=== PATIENT | male | born 1970 | race Caucasian/White ===

== ENCOUNTER 2017-01-15 12:55 | Emergency (ER) | payer OTHER ==
[2017-01-15 13:06] VITALS: BP 147/98
--- NOTE | 2017-01-15 13:55 | UC ---
Respiratory Complaint HPI - HPI Summary HPI Summary: 46 yo male with a 2 day hx of malaise/lassitude/weakness/cough/congestion/ myalgias no fever - History of Current Complaint Chief Complaint: UCGeneralIllness Stated Complaint: FLU SYMPTOMS Time Seen by Provider: 01/15/17 13:12 Hx Obtained From: Patient Onset/Duration: Gradual Onset, Lasting Days Timing: Constant Severity Initially: Mild Severity Currently: Mild Pain Intensity: 2 Pain Scale Used: 0-10 Numeric Character: Cough: Nonproductive Aggravating Factors: Nothing Alleviating Factors: Nothing Associated Signs And Symptoms: Positive: Nasal Congestion. Negative: Dyspnea, Fever, Chills, Pleuritic Chest Pain, Wheezing, Hemoptysis, Dizziness, Calf Pain , Calf Swelling, Edema, URI, Hoarseness, Sinus Discomfort Related History: Similar Episode/Dx as: - flu - Allergies/Home Medications Allergies/Adverse Reactions: Allergies Allergy/AdvReac Type Severity Reaction Status Date / Time No Known Allergies Allergy Verified 01/15/17 13:07 PMH/Surg Hx/FS Hx/Imm Hx Previously Healthy: Yes - Surgical History Surgical History: Yes Surgery Procedure, Year, and Place: gastric bypass 2011, right knee arthroscopy- meniscus - Social History Alcohol Use: Rare Substance Use Type: None Smoking Status (MU): Never Smoked Tobacco Review of Systems Constitutional: Fatigue Skin: Negative Eyes: Negative ENT: Sore Throat, Nasal Discharge Respiratory: Cough Cardiovascular: Negative Gastrointestinal: Negative Genitourinary: Negative Motor: Negative Neurovascular: Negative Musculoskeletal: Myalgia Neurological: Headache Psychological: Negative Is Patient Immunocompromised?: No All Other Systems Reviewed And Are Negative: Yes Physical Exam Triage Information Reviewed: Yes Appearance: Well-Appearing, No Pain Distress, Well-Nourished Vital Signs: Initial Vital Signs Temp 99.1 F 01/15/17 12:59 Pulse 79 01/15/17 12:59 Resp 18 01/15/17 12:59 BP 147/98 01/15/17 12:59 Pulse Ox 100 01/15/17 12:59 Vital Signs Reviewed: Yes Eyes: Positive: Conjunctiva Clear ENT: Positive: Hearing grossly normal, Nasal congestion, Nasal drainage, Trismus. Negative: TMs normal, Tonsillar swelling, Tonsillar exudate Neck: Positive: Supple, Nontender, No Lymphadenopathy Respiratory: Positive: Lungs clear, Normal breath sounds, No respiratory distress, No accessory muscle use Cardiovascular: Positive: RRR, No Murmur Musculoskeletal: Positive: ROM Intact, No Edema Neurological: Positive: Alert Psychological Exam: Normal Skin Exam: Normal UC Diagnostic Evaluation - Laboratory O2 Sat by Pulse Oximetry: 100 - normal/not hypoxic Diagnostic Studies Comment: RAPID FLU: (-) Respiratory Course/Dx - Differential Dx/Diagnosis Provider Diagnoses: viral syndrome Discharge - Discharge Plan Condition: Stable Disposition: HOME Patient Education Materials: Viral Syndrome (ED) Forms: *Work Release Referrals: Tin Demarco MD [Primary Care Provider] - Additional Instructions: rest fluids tylenol recheck here if symptoms worsen recheck with your MD next week if not better
== END 2017-01-15 14:00 | disposition home or self-care (01) ==
LOC: UCEAST 12:55
DX: R53.1 Weakness (principal); R05 Cough; R09.89 Other specified symptoms and signs involving the circulatory and respiratory systems; M79.1 Myalgia
CPT/HCPCS: 87502; 99211; G0463

== ENCOUNTER 2018-01-21 07:26 | Emergency (ER) | payer OTHER ==
[2018-01-21 08:01] VITALS: BP 142/93
--- NOTE | 2018-01-21 08:20 | UC ---
Psychiatric Complaint HPI - HPI Summary HPI Summary: 47 yo M c/o elevated BP and HR this morning. Patient has hx of anxiety and panic attacks for which he takes liquid Xanax (unable to take solid pill 2/2 hx of paulo-en-y surgery). Patient has had increased anxiety recently as he prepares for [facility] marathon in 3 days. He is competing w his , does not really want to, but feels obligated to run both for his and for the [employer] that he is running on behalf of. Awoke this morning w severe anxiety and noted increased HR and BP on wearable monitoring devices. He had SOB but no CP. Denies hx of DM or HTN. besides morbid obesity, is otherwise healthy and has completed 4 marathons in past. At this time, feels greatly improved compared to when symptoms first began. He took 1.5 doses of liquid Xanax and performed breathing exercises prior to arrival. Medications noted above (also takes sleep aid he cannot recall) - History Of Current Complaint Chief Complaint: UCPsych Stated Complaint: ANXIETY Time Seen by Provider: 01/21/18 07:58 - Allergies/Home Medications Allergies/Adverse Reactions: Allergies Allergy/AdvReac Type Severity Reaction Status Date / Time No Known Allergies Allergy Verified 01/15/17 13:07 PMH/Surg Hx/FS Hx/Imm Hx - Surgical History Surgical History: Yes Surgery Procedure, Year, and Place: gastric bypass 2010, right knee arthroscopy- meniscus - Social History Alcohol Use: Rare Substance Use Type: Prescribed Smoking Status (MU): Never Smoked Tobacco Review of Systems Respiratory: Shortness Of Breath Cardiovascular: Negative All Other Systems Reviewed And Are Negative: Yes Physical Exam Triage Information Reviewed: Yes Appearance: Well-Appearing, No Pain Distress, Obese Vital Signs: Initial Vital Signs Temp 98.7 F 01/21/18 07:37 Pulse 84 01/21/18 07:37 Resp 24 01/21/18 07:37 BP 190/102 01/21/18 07:37 Pulse Ox 97 01/21/18 07:37 Vital Signs Reviewed: Yes Eyes: Positive: Conjunctiva Clear Respiratory: Positive: Normal breath sounds, No respiratory distress, No accessory muscle use Cardiovascular Exam: Normal Cardiovascular: Positive: RRR Abdomen Description: Negative: Distended Neurological: Positive: Alert Psychological: Positive: Age Appropriate Behavior, Consolable Skin Exam: Normal Skin: Positive: Other - no diaphoresis Diagnostics - EKG Cardiac Rhythm: Sinus: Normal Ectopy: None ST Segment: Normal Psych Complaint Course/Dx - Differential Dx/Diagnosis Differential Diagnosis/HQI/PQRI: Other - generalized anxiety, panic attack, less likely, ACS Provider Diagnoses: panic attack Discharge - Sign-Out/Discharge Documenting (check all that apply): Patient Departure All imaging exams completed and their final reports reviewed: No Studies - Discharge Plan Condition: Stable Disposition: HOME Patient Education Materials: Panic Attack (ED) Forms: *Work Release Referrals: Tin Demarco MD [Primary Care Provider] - - Billing Disposition and Condition Condition: STABLE Disposition: Home
== END 2018-01-21 08:35 | disposition home or self-care (01) ==
LOC: UCEAST 07:26
DX: F41.0 Panic disorder [episodic paroxysmal anxiety] (principal)
CPT/HCPCS: 93005; 99211; G0463

== ENCOUNTER 2018-05-11 08:16 | Emergency (ER) | payer OTHER ==
[2018-05-11 08:42] VITALS: BP 160/95
--- NOTE | 2018-05-11 10:47 | UC ---
Respiratory Complaint HPI - HPI Summary HPI Summary: 2-3 weeks of cough and congestion. Has fits of coughing and cannot stop. No fever, nausea/vomiting. No headache or body aches. - History of Current Complaint Chief Complaint: UCRespiratory Stated Complaint: SORE THROAT COUGH DIARRHEA Time Seen by Provider: 05/11/18 09:10 Hx Obtained From: Patient Onset/Duration: Gradual Onset, Lasting Weeks, Still Present Timing: Constant Severity Initially: Moderate Severity Currently: Moderate Pain Intensity: 2 Pain Scale Used: 0-10 Numeric Character: Cough: Nonproductive Aggravating Factors: Nothing Alleviating Factors: Nothing Associated Signs And Symptoms: Positive: URI, Nasal Congestion. Negative: Dyspnea, Fever, Wheezing - Allergies/Home Medications Allergies/Adverse Reactions: Allergies Allergy/AdvReac Type Severity Reaction Status Date / Time No Known Allergies Allergy Verified 05/11/18 08:37 Home Medications: Home Medications Ferrous Fumarate/Ascorbic Acid [Mariel-Sequels 65-25 mg Caplet] 1 tab PO DAILY [History Confirmed 05/11/18] guaiFENesin ER TAB [Mucinex*] 600 mg PO BID PRN 05/11/18 [History Confirmed ] PMH/Surg Hx/FS Hx/Imm Hx Previously Healthy: Yes - Surgical History Surgical History: Yes Surgery Procedure, Year, and Place: gastric bypass 2010, right knee arthroscopy- meniscus - Family History Known Family History: Positive: Non-Contributory - Social History Alcohol Use: Rare Substance Use Type: None Smoking Status (MU): Never Smoked Tobacco Review of Systems All Other Systems Reviewed And Are Negative: Yes Constitutional: Positive: Negative ENT: Positive: Nasal Discharge Respiratory: Positive: Cough Cardiovascular: Positive: Negative Gastrointestinal: Positive: Negative Physical Exam Triage Information Reviewed: Yes Appearance: Well-Appearing, No Pain Distress, Well-Nourished Vital Signs: Initial Vital Signs Temp 99.1 F 05/11/18 08:29 Pulse 104 05/11/18 08:29 Resp 16 05/11/18 08:29 BP 160/95 05/11/18 08:29 Pulse Ox 96 05/11/18 08:29 Vital Signs Reviewed: Yes Eyes: Positive: Conjunctiva Clear ENT: Positive: Hearing grossly normal, Pharynx normal, TMs normal Neck: Positive: Supple, Nontender, No Lymphadenopathy Respiratory Exam: Normal Cardiovascular Exam: Normal Abdomen Description: Positive: Soft Musculoskeletal: Positive: No Edema Neurological: Positive: Alert Psychological: Positive: Age Appropriate Behavior Skin: Negative: Rashes UC Diagnostic Evaluation - Laboratory O2 Sat by Pulse Oximetry: 96 Respiratory Course/Dx - Differential Dx/Diagnosis Provider Diagnosis: Acute bronchitis Discharge - Sign-Out/Discharge Documenting (check all that apply): Patient Departure All imaging exams completed and their final reports reviewed: No Studies - Discharge Plan Condition: Stable Disposition: HOME Prescriptions: Azithromycin 500 mg PO DAILY #5 tab Patient Education Materials: Acute Bronchitis (ED) Forms: *Work Release Referrals: iTn Demarco MD [Primary Care Provider] - If Needed Additional Instructions: YOUR SYMPTOMS MAY BE VIRALLY MEDIATED BUT GIVEN THE LENGTH OF TIME YOU HAVE BEEN ILL WE WILL COVER YOU WITH ANTIBIOTICS. IF YOU START THE MEDICINE BE SURE TO TAKE IT FOR THE FULL COURSE. REST, HYDRATE, OTC MEDS NEEDED. SEEK FOLLOW- UP WITH YOUR PCP IF YOU ARE NOT IMPROVING OVER THE NEXT 1-2 WEEKS. - Billing Disposition and Condition Condition: STABLE Disposition: Home
== END 2018-05-11 09:28 | disposition home or self-care (01) ==
LOC: UCEAST 08:16
DX: J20.9 Acute bronchitis, unspecified (principal)
CPT/HCPCS: 99212; G0463

== ENCOUNTER 2019-03-08 05:27 | Emergency (ER) | payer OTHER ==
[2019-03-08] MEDS ORDERED: NS 0.9% 1000 ML** 1,000 ML IV ONE (05:49)
[2019-03-08] MEDS ORDERED: Ketorolac INJ* 30 MG/ML 1 ML VIAL IV PUSH ONE (06:01)
[2019-03-08 06:18] LABS: ABS Basophils 0.1 10^3/ul (0-0.2); ABS Eosinophils 0.1 10^3/ul (0-0.6); ABS Lymphocytes 1.4 10^3/ul (1.0-4.8); ABS Monocytes 0.7 10^3/ul (0-0.8); ABS Neutrophils 4.6 10^3/ul (1.5-7.7); Eosinophil % 1.5 %; Hematocrit 38 % (42-52); Hemoglobin 12.6 g/dL (14.0-18.0); Lymphocyte % 19.8 %; Mean Corpuscular HGB Conc 33 g/dL (31-36); Mean Corpuscular Hemoglobin 27 pg (27-31); Mean Corpuscular Volume 82 fL (80-94); Mean Platelet Volume 7.6 fL (7.4-10.4); Platelet Count 307 10^3/uL (150-450); Red Cell Distribution Width 17 % (10-15); White Blood Count 6.9 10^3/uL (3.5-10.8)
[2019-03-08 06:18] LABS: Urine Appearance Clear; Urine Bilirubin Negative (Negative); Urine Blood Negative (Negative); Urine Color Yellow; Urine Glucose Negative (Negative); Urine Ketones Negative (Negative); Urine Nitrite Negative (Negative); Urine Protein Negative (Negative); Urine Urobilinogen Negative (Negative)
[2019-03-08 07:05] LABS: Albumin/Globulin Ratio 1.3 (1-3); BUN/Creatinine Ratio 8.7 (8-20); C Reactive Protein 20.7 mg/L (<8.01); Calcium 8.7 mg/dL (8.6-10.3); EGFR African American 107.2 (>60); EGFR Non-African American 88.6 (>60); Globulin 3.2 g/dL (2-4); Total Bilirubin 0.4 mg/dL (0.2-1.0); Total Protein 7.2 g/dL (6.4-8.9)
--- NOTE | 2019-03-08 07:48 | ED ---
Back Pain - HPI Summary HPI Summary: Patient is a 48-year-old male who presents emergency department for intermittent right flank pain 4 weeks. Patient also notes blood in urine and believes he has passed small kidney stones as he saw a solid matter in the toilet. Patient denies fever, chills, chest pain, shortness of breath, abdominal pain. Past medical history of gastric bypass, gastric ulcer. Pain is worse with movement. Symptoms are moderate in severity. - History of Current Complaint Chief Complaint: EDFlankPain Stated Complaint: BLOOD IN URINE PER PT Time Seen by Provider: 03/08/19 05:45 Hx Obtained From: Patient Pain Intensity: 7 - Allergies/Home Medications Allergies/Adverse Reactions: Allergies Allergy/AdvReac Type Severity Reaction Status Date / Time No Known Allergies Allergy Verified 03/08/19 05:31 Home Medications: Home Medications ALPRAZolam [Alprazolam Odt] 2 mg PO Q6HR 03/08/19 [History Confirmed 03/08/19] Levomilnacipran HCl [Fetzima] 20 mg PO DAILY 03/08/19 [History Confirmed ] QUEtiapine TAB* [Seroquel 300 MG TAB*] 300 mg PO BEDTIME 03/08/19 [History Confirmed 03/08/19] Vortioxetine (NF) [Trintellix (NF)] 20 mg PO DAILY 03/08/19 [History Confirmed 03/08/19] PMH/Surg Hx/FS Hx/Imm Hx Previously Healthy: Yes Endocrine/Hematology History: Denies: Hx Diabetes, Hx Thyroid Disease Cardiovascular History: Denies: Hx Hypertension Respiratory History: Reports: Hx Sleep Apnea - HISTORY OF Denies: Hx Asthma, Hx Chronic Obstructive Pulmonary Disease (COPD) GI History: Denies: Hx Ulcer History: Reports: Hx Kidney Stones - HX OF -2014,2009- NO PROCEDURES Musculoskeletal History: Reports: Hx Arthritis - RHEUMATOID - RIGHT KNEE Sensory History: Reports: Hx Cataracts - BILATERAL Denies: Hx Contacts or Glasses, Hx Hearing Aid Opthamlomology History: Reports: Hx Cataracts - BILATERAL Denies: Hx Contacts or Glasses Psychiatric History: Reports: Hx Anxiety - HISTORY OF IN THE PAST, Hx Depression - HISTORY OF IN THE PAST - Surgical History Surgery Procedure, Year, and Place: gastric bypass 2010, right knee arthroscopy- meniscus Hx Anesthesia Reactions: No - Immunization History Immunizations Up to Date: Yes Infectious Disease History: No Infectious Disease History: Denies: Hx Hepatitis, Hx Human Immunodeficiency Virus (HIV), History Other Infectious Disease, Traveled Outside the [place] in Last 30 Days - Family History Known Family History: Positive: Non-Contributory - Social History Occupation: Employed Full-time Lives: With Family Alcohol Use: Rare Substance Use Type: Reports: None Smoking Status (MU): Never Smoked Tobacco Review of Systems Constitutional: Negative Negative: Fever ENT: Negative Cardiovascular: Negative Negative: Palpitations, Chest Pain Respiratory: Negative Negative: Shortness Of Breath, Cough Positive: Nausea. Negative: Abdominal Pain, Vomiting, Diarrhea Positive: flank pain, hematuria Positive: Other - Back pain, right Neurological: Negative Negative: Weakness, Paresthesia, Numbness All Other Systems Reviewed And Are Negative: Yes Physical Exam Triage Information Reviewed: Yes Vital Signs On Initial Exam: Initial Vitals Temp Pulse Resp BP Pulse Ox 97.7 F 104 16 153/126 99 03/08/19 05:29 03/08/19 05:29 03/08/19 05:29 03/08/19 05:29 03/08/19 05:29 Vital Signs Reviewed: Yes Appearance: Positive: Well-Appearing - Pt. sitting on bed in NAD> Skin: Positive: Warm, Dry Head/Face: Positive: Normal Head/Face Inspection Eyes: Positive: Normal, EOMI, TRISH Neck: Positive: Supple Respiratory/Lung Sounds: Positive: Clear to Auscultation, Breath Sounds Present Cardiovascular: Positive: Normal, RRR Abdomen Description: Positive: Other: - Obese. Abd. is soft and nontendner throughout. Right CVA tenderness. Musculoskeletal: Positive: Normal, Strength/ROM Intact Neurological: Positive: Normal, CN Intact II-III Psychiatric: Positive: Affect/Mood Appropriate Procedures - Sedation Patient Received Moderate/Deep Sedation with Procedure: No Diagnostics - Vital Signs Vital Signs Temp Pulse Resp BP Pulse Ox 03/08/19 05:29 97.7 F 104 16 153/126 99 - Laboratory Lab Results: Lab Results 03/08/19 03/08/19 03/08/19 Range/Units 06:05 06:09 06:09 WBC 6.9 (3.5-10.8) 10^3/uL RBC 4.70 (4.18-5.48) 10^6 /uL Hgb 12.6 L (14.0-18.0) g/dL Hct 38 L (42-52) % MCV 82 (80-94) fL MCH 27 (27-31) pg MCHC 33 (31-36) g/dL RDW 17 H (10-15) % Plt Count 307 (150-450) 10^3/uL MPV 7.6 (7.4-10.4) fL Neut % (Auto) 67.3 % Lymph % (Auto) 19.8 % [place] % (Auto) 10.6 % Eos % (Auto) 1.5 % Baso % (Auto) 0.8 % Absolute Neuts (auto) 4.6 (1.5-7.7) 10^3/ul Absolute Lymphs (auto) 1.4 (1.0-4.8) 10^3/ul Absolute Monos (auto) 0.7 (0-0.8) 10^3/ul Absolute Eos (auto) 0.1 (0-0.6) 10^3/ul Absolute Basos (auto) 0.1 (0-0.2) 10^3/ul Absolute Nucleated RBC 0.0 10^3/ul Nucleated RBC % 0.0 Sodium 137 (135-145) mmol/L Potassium 4.0 (3.5-5.0) mmol/L Chloride 104 (101-111) mmol/L Carbon Dioxide 23 (22-32) mmol/L Anion Gap 10 (2-11) mmol/L BUN 8 (6-24) mg/dL Creatinine 0.92 (0.67-1.17) mg/dL Est GFR ( Amer) 107.2 (>60) Est GFR (Non-Af Amer) 88.6 (>60) BUN/Creatinine Ratio 8.7 (8-20) Glucose 109 H (70-100) mg/dL Calcium 8.7 (8.6-10.3) mg/dL Total Bilirubin 0.40 (0.2-1.0) mg/dL AST 18 (13-39) U/L ALT 12 (7-52) U/L Alkaline Phosphatase 96 (34-104) U/L C-Reactive Protein 20.70 H (<8.01) mg/L Total Protein 7.2 (6.4-8.9) g/dL Albumin 4.0 (3.2-5.2) g/dL Globulin 3.2 (2-4) g/dL Albumin/Globulin Ratio 1.3 (1-3) Urine Color Yellow Urine Appearance Clear Urine pH 5.0 (5-9) Ur Specific [place] 1.010 (1.010-1.030) Urine Protein Negative (Negative) Urine Ketones Negative (Negative) Urine Blood Negative (Negative) Urine Nitrate Negative (Negative) Urine Bilirubin Negative (Negative) Urine Urobilinogen Negative (Negative) Ur Leukocyte Esterase Negative (Negative) Urine Glucose Negative (Negative) Result Diagrams: 03/08/19 06:09 03/08/19 06:09 Lab Statement: Any lab studies that have been ordered have been reviewed, and results considered in the medical decision making process. Back Pain Course/Dx - Course Course Of Treatment: Pt. presenting with ongoing flank pain and intermittent hematuria. He is afebrile and well appearing. BP elevated. Will obtain labs, u/ a and ct scan for further evaluation. Labs show mild chronic anemia and mildly elevated CRP, otherwise unremarkable. U/A negative for RBCs or infection. CT per radiology: IMPRESSION: 1. No acute findings. No evidence of hydronephrosis or nephrolithiasis. 2. Compression fracture of L2 with loss of height by about 20%. An acute fracture line is seen. No paravertebral soft tissue masses observed. 3. Gastric bypass surgery without apparent complications. Suspect compression fx cause of pt.'s ongoing pain. Pt. does not he slipped down steps a few weeks ago. No neuro deficits on exam. Pt. notes he has been taking tylenol at home with minimal improvement of pain. Cannot take nsaids with hx of gastric ulcer. APICULTURIST reviewed. Will rx a short course of percocet for pain. Pt. to call his pcp today for a close f.u apt. Given return precautions. Pt. understands and agrees with plan. This report is only to be considered final once signed by the Provider(s) as displayed in the "<Electronically Signed by > " field (s). Absence of a. signature indicates the report is in a draft status and still needs to be finalized. In the event this document was created by someone other than the. signing Provider, the individual initiating the document will be listed in the "Entered by:" or "Dictated by:" rivero. 2 of 2 - Diagnoses Differential Diagnosis/HQI/PQRI: Positive: Arthritis, Fracture, Herniated Disc, Renal Colic, Strain Provider Diagnoses: Lumbar compression fracture Discharge ED - Sign-Out/Discharge Documenting (check all that apply): Patient Departure - Discharge Plan Condition: Good Disposition: HOME Prescriptions: oxyCODONE/Acetamin 5/325 MG* [Percocet 5/325 TAB*] 1 tab PO Q6H PRN #12 tab MDD 4 PRN Reason: Pain - Moderate Patient Education Materials: Vertebral Compression Fracture (ED) Forms: *Work Release Referrals: Tin Demarco MD [Primary Care Provider] - Additional Instructions: Call your PCP today to schedule a close follow up appointment Pain medication as directed Ice/heat to back Return to ER for leg numbness/weakness, loss of bowel or bladder function, of if concerned - Billing Disposition and Condition Condition: GOOD Disposition: Home - Attestation Statements Provider Attestation: I was available for consult. This patient was seen by the NICOLAS. The patient was not presented to, seen by, or examined by me. -Deangelo
[2019-03-08 07:59] VITALS: BP 151/106
== END 2019-03-08 07:58 | disposition home or self-care (01) ==
LOC: ED 05:27
DX: S32.020A Wedge compression fracture of second lumbar vertebra, initial encounter for closed fracture (principal); X58.XXXA Exposure to other specified factors, initial encounter; Y92.9 Unspecified place or not applicable; R31.9 Hematuria, unspecified; R03.0 Elevated blood-pressure reading, without diagnosis of hypertension; K44.9 Diaphragmatic hernia without obstruction or gangrene; F41.9 Anxiety disorder, unspecified; F32.9 Major depressive disorder, single episode, unspecified; Z87.442 Personal history of urinary calculi; Z98.84 Bariatric surgery status
CPT/HCPCS: 36415; 74176; 80053; 81003; 85025; 86140; 96361; 96374; 99283; J1885

== ENCOUNTER 2019-03-13 07:46 | Emergency (ER) | payer OTHER ==
--- OUTSIDE RECORDS SUMMARY | 2019-03-13 07:51 | XMS REPORT | Summary of Care ---
:1970 Author Organization [facility] Address [address] [facility] [place] [address] Care Team Providers Name Role Phone Tina Salcedo MD Primary Care Provider Reason for Visit Reason Comments Establish Care pt fell down stairs a 4 weeks ago statred having blood in urine went to [facility] was at [facility] this am and was DX with copression frature lower back into the center upper back sent pt home with medication and said to follow up with PCP Encounter Details Date Type Department Care Team Description 03/08/2019 Office Visit [facility], Flank pain (Primary Dx); Omari Cook MD Compression fracture of L2 vertebra, initial encounter ([facility]); [address] Hematuria, unspecified type; [place] [address] [place] [address] S/P gastric bypass [phone] Allergies No Known Allergiesdocumented as of this encounter (statuses as of 03/08/2019) Medications Medication Sig Dispensed Refills Start Date End Date Status ALPRAZolam (XANAX) Take 0.5 mg by 0 Active 0.5 MG Oral Tab mouth THREE TIMES DAILY NEEDED for anxiety. FETZIMA 20 MG Oral 0 03/02/2019 Active CAPSULE SR 24 HR Quetiapine Fumarate Take 300 mg by 0 03/02/2019 Active 300 MG Oral Tab mouth NEEDED. TRINTELLIX 20 MG 0 03/02/2019 Active Oral Tab OXYcodone-acetamino Take 1 Tab by 0 Active phen (PERCOCET) mouth EVERY 5-325 MG Oral Tab FOUR HOURS NEEDED for Pain. zolpidem (AMBIEN) 5 Take 5 mg by 0 03/08/2019 Discontinued MG Oral Tab mouth EVERY BEDTIME NEEDED. Vortioxetine HBr 20 Take 1 Tab by 0 03/08/2019 Discontinued MG Oral Tab mouth DAILY. azithromycin Take 2 pills 6 Tab 0 06/18/2016 03/08/2019 Discontinued (ZITHROMAX) 250 MG on the first Oral Tab day and 1 pill each day for 4 days documented as of this encounter (statuses as of 03/08/2019) Active Problems Problem Noted Date History of kidney stones 03/27/2015 Anxiety disorder 03/27/2015 BMI 40.0-44.9, adult 03/27/2015 Morbid obesity 05/14/2011 Insomnia 05/19/2006 documented as of this encounter (statuses as of 03/08/2019) Resolved Problems Problem Noted Date Resolved Date BMI 35.0-35.9,adult 11/03/2011 03/27/2015 BMI 50.0-59.9, adult 10/28/2010 05/14/2011 FOOT PAIN 02/02/2007 05/14/2011 Obesity 04/08/2006 05/14/2011 documented as of this encounter (statuses as of 03/08/2019) Immunizations Name Administration Dates Next Due MMR VACCINE 07/25/2015 documented as of this encounter Social History Tobacco Use Types Packs/Day Years Used Date Never Smoker Smokeless Tobacco: Never Used Alcohol Use Drinks/Week oz/Week Comments No 0 Standard drinks or equivalent 0.0 Sex Assigned at Date Recorded Not on file Job Start Date Occupation Industry Not on file Not on file Not on file Travel History Travel Start Travel End No recent travel history available. documented as of this encounter Last Filed Vital Signs Vital Sign Reading Time Taken Comments Blood Pressure 148/80 03/08/2019 10:26 AM EST Pulse 95 03/08/2019 10:26 AM EST Temperature 37.6 03/08/2019 10:26 AM EST C (99.7 F) Respiratory Rate - - Oxygen Saturation 98% 03/08/2019 10:26 AM EST Inhaled Oxygen Concentration - - Weight 169.2 kg (373 lb) 03/08/2019 10:26 AM EST Height - - Body Mass Index 49.21 06/18/2016 11:23 AM EDT documented in this encounter Patient Instructions Patient InstructionsJoyce Ramon MD - 03/08/2019 10:20 AM EST1. Schedule fasting blood tests 2. Follow up in 1 week and as needed documented in this encounter Progress Notes Joyce Ramon MD - 03/08/2019 10:20 AM EST Patient: Anshul Vyas Date of Service: 03/08/2019 Subjective: Anshul Vyas is a 48-y.o. male who presents for Chief Complaint Patient presents with Establish Care pt fell down stairs a 4 weeks ago statred having blood in urine went to [facility] was at [facility] this am andwas DX with copression frature lower back into the center upper back sent pt home with medication and said to follow up with PCP Patient comes to establish care and follow up evaluation at [facility] ER today Has history of kidney stones. Developed R flank pain, hematuria over the weekend. Thinks he passed some stones Also fell 4 weeks ago, landed on his back Developed pain in Lumbar area aggravated by movement since Has history of gastric bypass surgery On Iron, B12, Vit D supplements, but doesn't recall the doses Evaluation at the ER: CT abdomen/pelvis: no kidney stones, L2 compression fracture UA: normal, no blood Patient was prescribed Percocet Continues to complains of R flank, R lower abdominal pain Past Medical History: Diagnosis Date Anxiety Depression Hx of bypass gastroenterostomy 2010 Kidney stones Obesity 04/08/2006 Outpatient Medications as of 03/08/2019 Medication Sig Dispense Refill ALPRAZolam (XANAX) 0.5 MG Oral Tab Take 0.5 mg by mouth THREE TIMES DAILY NEEDED for anxiety. FETZIMA 20 MG Oral CAPSULE SR 24 HR Quetiapine Fumarate 300 MG Oral Tab Take 300 mg by mouth NEEDED. TRINTELLIX 20 MG Oral Tab No current facility-administered medications on file as of 03/08/2019. No Known Allergies Review of Systems: All remaining review of systems was negative. Objective: BP 148/80 (BP Location: Left arm, Patient Position: Sitting) Pulse 95 Temp 99.7 F (37.6 C) Wt 373 lb (169.2 kg) SpO2 98% BMI 49.21 kg/m2 GENERAL: Alert, uncomfortable, shifting position frequently THROAT: lips, mucosa, and tongue normal: teeth and gums normal NECK: supple, symmetrical, trachea midline and no adenopathy BACK: Tenderness on palpation in thew upper Lumbar area LUNGS: clear to auscultation bilaterally HEART: regular rate and rhythm, S1, S2 normal, no murmur, click, rub or gallop ABDOMEN: soft, tender in RLQ and suprapubic area. Bowel sounds normal. No masses, no organomegaly ICD-9-CM ICD-10-CM 1. Flank pain Likely due to passing stone Consider urology consult 789.09 R10.9 2. Compression fracture of L2 vertebra, initial encounter ([facility]) Consider Dexa scan S32.020A 3. Hematuria, unspecified type Resolved 599.70 R31.9 4. S/P gastric bypass V45.86 Z98.84 COMPREHENSIVE METABOLIC PANEL LIPID PROFILE VITAMIN D 25 HYDROXY (RANKIN) FERRITIN IRON CBC WITH DIFFERENTIAL VITAMIN B12 LEVEL Patient Instructions 1. Schedule fasting blood tests 2. Follow up in 1 week and as needed Author: Joyce Ramon MD documented in this encounter Plan of Treatment Date Type Specialty Care Team Description 03/14/[address] [facility] Joyce Ramon MD [address] [place] [id number] [phone] 04/29/2019 Lab Internal Medicine Name Type Priority Associated Diagnoses Order Schedule COMPREHENSIVE METABOLIC Lab Routine S/P gastric bypass Expected: 03/08/2019 PANEL (Approximate), Expires: 03/08/2020 LIPID PROFILE Lab Routine S/P gastric bypass Expected: 03/08/2019 (Approximate), Expires: 03/08/2020 VITAMIN D 25 HYDROXY Lab Routine S/P gastric bypass Expected: 03/08/2019 (RANKIN) (Approximate), Expires: 03/08/2020 FERRITIN Lab Routine S/P gastric bypass Expected: 03/08/2019 (Approximate), Expires: 03/08/2020 IRON Lab Routine S/P gastric bypass Expected: 03/08/2019 (Approximate), Expires: 03/08/2020 CBC WITH DIFFERENTIAL Lab Routine S/P gastric bypass Expected: 03/08/2019 (Approximate), Expires: 03/08/2020 VITAMIN B12 LEVEL Lab Routine S/P gastric bypass Expected: 03/08/2019 (Approximate), Expires: 03/08/2020 Health Maintenance Due Date Last Done Comments DTaP/Tdap/Td Vaccines (1 - 05/22/1983 Tdap) DIABETES SCREENING 10/03/2017 10/03/2016, 05/08/2011, 09/17/2009 DEPRESSION SCREENING 03/08/2020 03/08/2019 INFLUENZA VACCINE (#1) 2020 Postponed from 11/21/2018 (Patient refused) LIPID DISORDER SCREENING 10/03/2021 10/03/2016, 05/08/2011, 09/27/2010, Additional history exists HEPATITIS A IMMUNIZATION Aged Out No longer eligible SERIES based on patient's age to complete this topic HPV IMMUNIZATION SERIES Aged Out No longer eligible based on patient's age to complete this topic MENINGOCOCCAL VACCINE IMM Aged Out No longer eligible based on patient's age to complete this topic PNEUMOCOCCAL 0-64 YRS Aged Out No longer eligible based on patient's age to complete this topic documented as of this encounter Results Not on filedocumented in this encounter Visit Diagnoses Diagnosis Compression fracture of L2 vertebra, initial encounter ([facility]) Hematuria, unspecified type Flank pain Abdominal pain, unspecified site S/P gastric bypass Bariatric surgery status documented in this encounter Insurance Payer Benefit Plan / Subscriber ID Effective Dates Phone Address Type Group [employer]EFAN xxxxxxxxxx 2009-Present [employer] (Work) documented as of this encounter
--- NOTE | 2019-03-13 08:01 | UC ---
Back Pain HPI - HPI Summary HPI Summary: 48 yo male presents with back pain. He tells me that he was in the ER a few days ago after noticing a blood clot and a ?kidney stone in the toilet bowl. He has also had flank pain for about a month. UA was negative. CT had no nephrolithiasis, but did note a compression fracture of L2 that seemed acute. At that time it was thought the compression fracture was the cause of pt's pain as he mentioned he slipped down the stairs a few weeks prior. He was rx'd percocet and advised to f/u with PCP. His PCP retired and he has called to establish with a new PCP, but says he is still waiting for a call for them to give him an appt. He is out of percocet, but states it did help take the edge off his pain and allowed him to do more things physically. He is here today with continued pain. He mentions that since 03/08 he has been passing small linear thin red clots in his urine that, he thinks, are kidney stones. His CT was negative for nephrolithiasis and his UA on 03/08 showed no blood. He has seen Urology in the past for his kidney stones and for an elective vasectomy. He has not had visible shine blood in his urine or troubles urinating. Denies new injury, abdominal pain, n/v/d/c, radiation of pain, numbness, tingling, saddle anesthesia, or loss of bowel/bladder control. No headaches, dizziness, SOB, or chest pain. - History of Current Complaint Stated Complaint: LOWER BACK PAIN Hx Obtained From: Patient Onset/Duration: Gradual Onset Severity Initially: Moderate Severity Currently: Moderate Pain Intensity: 7 Pain Scale Used: 0-10 Numeric - Allergies/Home Medications Allergies/Adverse Reactions: Allergies Allergy/AdvReac Type Severity Reaction Status Date / Time No Known Allergies Allergy Verified 03/08/19 05:31 PMH/Surg Hx/FS Hx/Imm Hx Psychological History: Anxiety, Depression - Surgical History Surgical History: Yes Surgery Procedure, Year, and Place: gastric bypass 2011, right knee arthroscopy- meniscus - Family History Known Family History: Positive: Non-Contributory - Social History Alcohol Use: Rare Substance Use Type: None Smoking Status (MU): Never Smoked Tobacco Review of Systems All Other Systems Reviewed And Are Negative: No Constitutional: Positive: Negative Skin: Positive: Negative Respiratory: Positive: Negative Cardiovascular: Positive: Negative Genitourinary: Positive: Other - ?blood in urine Neurovascular: Positive: Negative Musculoskeletal: Positive: Other: - Low back pain Neurological: Positive: Negative Psychological: Positive: Negative Physical Exam - Summary Physical Exam Summary: GENERAL: NAD. WDWN. No pain distress. SKIN: No rashes, sores, lesions, or open wounds. NECK: Supple. FROM. Nontender. No lymphadenopathy. CHEST: CTAB. No r/r/w. No accessory muscle use. Breathing comfortably and in no distress. CV: RRR. Pulses intact. Cap refill <2seconds ABDOMEN: Soft. NTTP. No CVA tenderness. Bowel sounds present MSK: TTP over lumbar paraspinal muscles. Point tenderness at L1-L4. Pain with flexion and extension of spine. Negative SLR b/l. Strength 5/5 B/L LEs including dorsiflexion and plantar flexion. FROM B/L LEs. No edema. NEURO: Alert. Sensations intact B/L LEs L3-S1. Reflexes intact PSYCH: Age appropriate behavior. Triage Information Reviewed: Yes Vital Signs: Vital Signs: Temp Pulse Resp BP Pulse Ox 98.4 F 111 18 160/100 100 03/13/19 07:59 03/13/19 07:59 03/13/19 07:59 03/13/19 08:32 03/13/19 07:59 Laboratory Tests 03/13/19 08:38 POC Urine Color Adilia POC Urine Clarity Clear POC Urine pH 6.0 POC Ur Specif [place] >= 1.030 POC Urine Protein Trace POC Ur Glucose (UA) Negative POC Urine Ketones Negative POC Urine Blood Trace-intact POC Urine Nitrite Negative POC Urine Bilirubin Negative POC Urine Urobilinogen 1.0 POC U Leukocyte Esteras 2+ A Vital Signs Reviewed: Yes Back Pain Course/Dx - Course Course Of Treatment: istop: Reference #: [id number] UA with trace blood and 2+ leuks. He is not having any urinary discomfort, but is noticing small, likely, blood clots in his urine - this could be due to an infection. Will treat today and send his urine for culture. Recommended he call his urologist to schedule an appt for further eval within 1 week. Regarding his back pain - there was no evidence of nephrolithiasis on CT from and his exam is most consistent with his L2 compression fracture being the cause of his pain. He has called to establish with a new PCP, thus I will refill his percocet today and rx for flexeril to see if this provides any relief so he may use the percocet sparingly. Discussed above with pt and he is agreeable to the plan. - Differential Dx/Diagnosis Provider Diagnosis: UTI (urinary tract infection), Compression fracture of L2 Discharge ED - Sign-Out/Discharge Documenting (check all that apply): Patient Departure All imaging exams completed and their final reports reviewed: No Studies - Discharge Plan Condition: Stable Disposition: HOME Prescriptions: Cephalexin CAP* [Keflex CAP*] 500 mg PO TID #15 cap Cyclobenzaprine TAB* [Flexeril 10 MG TAB*] 10 mg PO TID PRN #21 tab PRN Reason: Pain - Mild oxyCODONE/Acetamin 5/325 MG* [Percocet 5/325 TAB*] 1 tab PO Q8H PRN #9 tab MDD 3 PRN Reason: Pain - Severe Patient Education Materials: Vertebral Compression Fracture (ED), Lower Back Exercises (ED) Referrals: [facility] [Outside] - As Soon As Possible Tin Demarco MD [Primary Care Provider] - Daniel Adan MD [Medical Doctor] - As Soon As Possible Additional Instructions: If you develop a fever, shortness of breath, chest pain, new or worsening symptoms - please call your PCP or go to the ED immediately. Your blood pressure was high at todays visit. Please see your primary provider within 4 weeks for recheck and re-evaluation. 1) I suspect you are passing small blood clots in your urine. Based on your urine test from today, it appears you may have an infection. Please take the KEFLEX (antibiotic) as prescribed and call Urology to schedule a follow up appointment within 1-2 weeks for a recheck. 2) Regarding your back - please follow up with a primary care doctor as soon as possible for continued care of your back. This will likely heal with time, pain control, and eventual physical therapy. - Billing Disposition and Condition Condition: STABLE Disposition: Home
[2019-03-13 08:32] VITALS: BP 160/100
--- NOTE | 2019-03-15 15:29 | UC ---
- Progress Note Progress Note: Was seen 03/13 with a complicated hx of back pain suspected due to compression fracture. He does have an E. coli urinary infection. He is taking cephalexin. Please call to confirm that he is seeing a improvement in symptoms with use of the antibiotic. Course/Dx - Diagnoses Provider Diagnoses: UTI (urinary tract infection), Compression fracture of L2 Discharge ED - Sign-Out/Discharge Documenting (check all that apply): Post-Discharge Follow Up All imaging exams completed and their final reports reviewed: No Studies - Discharge Plan Condition: Stable Disposition: HOME Prescriptions: Cephalexin CAP* [Keflex CAP*] 500 mg PO TID #15 cap Cyclobenzaprine TAB* [Flexeril 10 MG TAB*] 10 mg PO TID PRN #21 tab PRN Reason: Pain - Mild oxyCODONE/Acetamin 5/325 MG* [Percocet 5/325 TAB*] 1 tab PO Q8H PRN #9 tab MDD 3 PRN Reason: Pain - Severe Patient Education Materials: Vertebral Compression Fracture (ED), Lower Back Exercises (ED) Referrals: [facility] [Outside] - As Soon As Possible Tin Demarco MD [Primary Care Provider] - Daniel Adan MD [Medical Doctor] - As Soon As Possible Additional Instructions: If you develop a fever, shortness of breath, chest pain, new or worsening symptoms - please call your PCP or go to the ED immediately. Your blood pressure was high at todays visit. Please see your primary provider within 4 weeks for recheck and re-evaluation. 1) I suspect you are passing small blood clots in your urine. Based on your urine test from today, it appears you may have an infection. Please take the KEFLEX (antibiotic) as prescribed and call Urology to schedule a follow up appointment within 1-2 weeks for a recheck. 2) Regarding your back - please follow up with a primary care doctor as soon as possible for continued care of your back. This will likely heal with time, pain control, and eventual physical therapy. - Billing Disposition and Condition Condition: STABLE Disposition: Home
== END 2019-03-13 09:00 | disposition home or self-care (01) ==
LOC: UCEAST 07:46
DX: S32.029A Unspecified fracture of second lumbar vertebra, initial encounter for closed fracture (principal); N39.0 Urinary tract infection, site not specified; X58.XXXA Exposure to other specified factors, initial encounter; Y92.9 Unspecified place or not applicable
CPT/HCPCS: 81003; 87077; 87086; 87186; 99212; G0463

== ENCOUNTER 2021-11-13 07:55 | Inpatient (IN) ==
[2021-11-13] MEDS ORDERED: Lactated Ringers 1000 ml BAG 1,000 ML IV ONE (08:42)
[2021-11-13 09:22] LABS: ABS Lymphocytes 0.2 10^3/ul (1.0-4.8); ABS Monocytes 1.2 10^3/ul (0-0.8); ABS Neutrophils 10.3 10^3/ul (1.5-7.7); Hematocrit 33 % (42-52); Hemoglobin 10.4 g/dL (14.0-18.0); Lymphocyte % 1.7 %; Mean Corpuscular HGB Conc 32 g/dL (31-36); Mean Corpuscular Hemoglobin 27 pg (27-31); Mean Corpuscular Volume 83 fL (80-94); Mean Platelet Volume 7.9 fL (7.4-10.4); Platelet Count 247 10^3/uL (150-450); Red Blood Count 3.93 10^6 /uL (4.18-5.48); Red Cell Distribution Width 21 % (10-15); White Blood Count 11.7 10^3/uL (3.5-10.8)
[2021-11-13] MEDS ORDERED: LORazepam 2 mg VIAL 1 ml IV PUSH ONE (10:05)
[2021-11-13] MEDS ORDERED: Lorazepam PYXIS KEY PRN (10:05)
[2021-11-13 10:07] LABS: ALT 27 U/L (7-52); AST 33 U/L (13-39); Albumin/Globulin Ratio 1.5 (1-3); Alcohol, S < 13 mg/dL (<13); Alkaline Phosphatase 77 U/L (35-149); Anion Gap 10 mmol/L (2-11); Blood Urea Nitrogen 10 mg/dL (6-24); CO2 Carbon Dioxide 22 mmol/L (22-32); Chloride 105 mmol/L (101-111); Globulin 2.7 g/dL (2-4); Glucose 96 mg/dL (70-100); Potassium 3.6 mmol/L (3.5-5.0); Sodium 137 mmol/L (135-145); Total Protein 6.7 g/dL (6.4-8.9); eGFR CKD-EPI 90.1 (>60)
[2021-11-13] MEDS ORDERED: LORazepam 2 mg VIAL 1 ml IV PUSH SCH (11:00)
[2021-11-13 11:06] LABS: Urine Appearance Clear; Urine Blood Negative (Negative); Urine Color Yellow; Urine Glucose Negative (Negative); Urine Ketones 3+ (80mg/dL) (Negative); Urine Nitrite Negative (Negative); Urine Protein 2+ (100 mg/dL) (Negative); Urine Specific Gravity 1.028 (1.002-1.030); Urine pH 5.5 (5.0-9.0)
[2021-11-13 11:11] LABS: Urine Bacteria Absent (Absent); Urine Red Blood Cell 1+(3-5/hpf) (Absent); Urine White Blood Cell Trace(0-5/hpf) (Absent)
[2021-11-13 11:35] LABS: C Reactive Protein 43.94 mg/L (<8.01)
[2021-11-13 11:47] LABS: Urine Benzodiazepine Screen Presumptive Positive (None Detect); Urine Cannabinoids Screen None Detected (None Detect); Urine Opiates Screen None Detected (None Detect)
[2021-11-13 12:11] LABS: TSH Ultra Thyroid Stim Horm 1.91 mcIU/mL (0.34-5.60)
[2021-11-13 16:42] LABS: Folate > 20.00 ng/mL (5.90-24.80)
[2021-11-13 16:43] LABS: Vitamin B12 1182 pg/mL (180-914)
[2021-11-13 16:46] LABS: Vitamin D Total 25(OH) 14.2 ng/mL (20-50)
[2021-11-13] MEDS: Enoxaparin 40 MG/0.4 ML SYR SUBCUT SCH (21:19)
[2021-11-13] MEDS: ACAMPROSATE 333 MG PO SCH (22:03)
[2021-11-14 05:37] LABS: ABS Basophils 0.1 10^3/ul (0-0.2); ABS Eosinophils 0.1 10^3/ul (0-0.6); ABS Lymphocytes 0.9 10^3/ul (1.0-4.8); ABS Monocytes 1.3 10^3/ul (0-0.8); ABS Neutrophils 6.5 10^3/ul (1.5-7.7); Eosinophil % 0.9 %; Hematocrit 31 % (42-52); Hemoglobin 10.1 g/dL (14.0-18.0); Lymphocyte % 9.9 %; Mean Corpuscular HGB Conc 33 g/dL (31-36); Mean Corpuscular Hemoglobin 27 pg (27-31); Mean Corpuscular Volume 83 fL (80-94); Mean Platelet Volume 8.2 fL (7.4-10.4); Platelet Count 210 10^3/uL (150-450); Red Blood Count 3.71 10^6 /uL (4.18-5.48); Red Cell Distribution Width 20 % (10-15); White Blood Count 8.8 10^3/uL (3.5-10.8)
[2021-11-14 05:52] LABS: Calcium 8.2 mg/dL (8.6-10.3); Magnesium 1.9 mg/dL (1.9-2.7); Phosphorus 3.6 mg/dL (2.5-5.0); Potassium 3.8 mmol/L (3.5-5.0); eGFR CKD-EPI 106.9 (>60)
[2021-11-14] MEDS: Multivitamins/Minerals TAB PO SCH (08:29)
[2021-11-14] MEDS: ACAMPROSATE 333 MG PO SCH ×3 (09:10→22:21)
[2021-11-14] MEDS: Enoxaparin 40 MG/0.4 ML SYR SUBCUT SCH (22:22)
[2021-11-15] MEDS: ACAMPROSATE 333 MG PO SCH ×3 (08:30→20:56)
[2021-11-15] MEDS: CMCS:Vortioxetine 10 mg TAB (NF) PO SCH (08:31)
[2021-11-15] MEDS: Multivitamins/Minerals TAB PO SCH (08:32)
[2021-11-15 10:34] LABS: ABS Basophils 0.1 10^3/ul (0-0.2); ABS Eosinophils 0.2 10^3/ul (0-0.6); ABS Lymphocytes 0.9 10^3/ul (1.0-4.8); ABS Monocytes 1.3 10^3/ul (0-0.8); ABS Neutrophils 6.5 10^3/ul (1.5-7.7); Eosinophil % 2.4 %; Hematocrit 33 % (42-52); Hemoglobin 10.3 g/dL (14.0-18.0); Lymphocyte % 9.8 %; Mean Corpuscular HGB Conc 32 g/dL (31-36); Mean Corpuscular Hemoglobin 26 pg (27-31); Mean Corpuscular Volume 83 fL (80-94); Mean Platelet Volume 7.8 fL (7.4-10.4); Nucleated Red Blood Cells % 0.1; Platelet Count 263 10^3/uL (150-450); Red Blood Count 3.95 10^6 /uL (4.18-5.48); Red Cell Distribution Width 20 % (10-15)
[2021-11-15 11:13] LABS: Anion Gap 10 mmol/L (2-11); Blood Urea Nitrogen 10 mg/dL (6-24); CO2 Carbon Dioxide 23 mmol/L (22-32); Chloride 103 mmol/L (101-111); Glucose 103 mg/dL (70-100); Potassium 3.6 mmol/L (3.5-5.0); Sodium 136 mmol/L (135-145); Total Iron Binding Capacity 371 mcg/dL (250-450); Transferrin 265 mg/dL (203-362)
[2021-11-15 11:26] LABS: Ferritin 73.6 ng/mL (24-336)
[2021-11-15 13:28] LABS: % Iron Saturation 5 % (15-55); Iron < 20 ug/dL (50-212); Unsaturated Iron Binding 351 ug/dL
[2021-11-15 15:17] LABS: Urine Appearance Clear; Urine Color Yellow
[2021-11-15 15:18] LABS: Urine Bilirubin Negative (Negative); Urine Blood Negative (Negative); Urine Glucose Negative (Negative); Urine Ketones Trace (Negative); Urine Nitrite Negative (Negative); Urine Protein Negative (Negative); Urine Urobilinogen 1.0 (Negative) (Negative); Urine pH 6.5 (5.0-9.0)
[2021-11-15] MEDS: Cholecalciferol (VIT D3) 1,000 unit TAB PO SCH (16:53)
[2021-11-15 18:59] LABS: C Reactive Protein 122.04 mg/L (<8.01)
[2021-11-15] MEDS ORDERED: Iron Sucrose 200 MG in NS 0.9% 100 ml BAG 100 ML IVPB ONE (19:30)
[2021-11-15] MEDS: Enoxaparin 40 MG/0.4 ML SYR SUBCUT SCH (20:55)
[2021-11-16] MEDS: ACAMPROSATE 333 MG PO SCH ×3 (08:32→21:26)
[2021-11-16] MEDS: CMCS:Vortioxetine 10 mg TAB (NF) PO SCH (08:33)
[2021-11-16] MEDS: Cholecalciferol (VIT D3) 1,000 unit TAB PO SCH (08:37)
[2021-11-16] MEDS: Multivitamins/Minerals TAB PO SCH (08:37)
[2021-11-16 09:36] LABS: Calcium 7.9 mg/dL (8.6-10.3); Potassium 3.7 mmol/L (3.5-5.0)
[2021-11-16] MEDS ORDERED: Iohexol 350 (CONTRAST) 500 ML MDV IV ONE (16:55)
[2021-11-16] MEDS: Enoxaparin 40 MG/0.4 ML SYR SUBCUT SCH (21:25)
[2021-11-17 05:45] LABS: ABS Basophils 0.1 10^3/ul (0-0.2); ABS Eosinophils 0.2 10^3/ul (0-0.6); ABS Lymphocytes 1.2 10^3/ul (1.0-4.8); ABS Monocytes 0.8 10^3/ul (0-0.8); ABS Neutrophils 3.5 10^3/ul (1.5-7.7); Hematocrit 33 % (42-52); Hemoglobin 10.5 g/dL (14.0-18.0); Lymphocyte % 20.3 %; Mean Corpuscular HGB Conc 32 g/dL (31-36); Mean Corpuscular Hemoglobin 27 pg (27-31); Mean Corpuscular Volume 84 fL (80-94); Mean Platelet Volume 7.6 fL (7.4-10.4); Platelet Count 342 10^3/uL (150-450); Red Blood Count 3.94 10^6 /uL (4.18-5.48); Red Cell Distribution Width 20 % (10-15); White Blood Count 5.7 10^3/uL (3.5-10.8)
[2021-11-17 06:18] LABS: Calcium 8.4 mg/dL (8.6-10.3); Potassium 4.3 mmol/L (3.5-5.0); eGFR CKD-EPI 113.9 (>60)
[2021-11-17] MEDS: Multivitamins/Minerals TAB PO SCH (09:03)
[2021-11-17] MEDS: ACAMPROSATE 333 MG PO SCH ×3 (09:03→22:02)
[2021-11-17] MEDS: Cholecalciferol (VIT D3) 1,000 unit TAB PO SCH (09:03)
[2021-11-17] MEDS: CMCS:Vortioxetine 10 mg TAB (NF) PO SCH (09:03)
[2021-11-17] MEDS: Enoxaparin 40 MG/0.4 ML SYR SUBCUT SCH (22:05)
[2021-11-18 05:14] LABS: Hematocrit 33 % (42-52); Hemoglobin 10.4 g/dL (14.0-18.0); Mean Corpuscular HGB Conc 31 g/dL (31-36); Mean Corpuscular Hemoglobin 26 pg (27-31); Mean Corpuscular Volume 83 fL (80-94); Mean Platelet Volume 7.7 fL (7.4-10.4); Platelet Count 362 10^3/uL (150-450); Red Blood Count 3.98 10^6 /uL (4.18-5.48); Red Cell Distribution Width 20 % (10-15); White Blood Count 5.8 10^3/uL (3.5-10.8)
[2021-11-18 05:34] LABS: C Reactive Protein 32.52 mg/L (<8.01); Magnesium 1.8 mg/dL (1.9-2.7)
[2021-11-18] MEDS: Multivitamins/Minerals TAB PO SCH (07:41)
[2021-11-18] MEDS: CMCS:Vortioxetine 10 mg TAB (NF) PO SCH (07:42)
[2021-11-18] MEDS: Cholecalciferol (VIT D3) 1,000 unit TAB PO SCH (07:43)
[2021-11-18] MEDS: ACAMPROSATE 333 MG PO SCH ×3 (07:43→21:09)
[2021-11-18] MEDS ORDERED: Iron Sucrose 20 MG/ML 5 ML VIAL IV PUSH ONE (11:49)
[2021-11-18] MEDS ORDERED: Iron Sucrose 200 MG in NS 0.9% 100 ml IVPB ONE (13:00)
[2021-11-18] MEDS: Enoxaparin 40 MG/0.4 ML SYR SUBCUT SCH (21:04)
[2021-11-19] MEDS ORDERED: Iron Sucrose 200 MG in NS 0.9% 100 ml BAG 100 ML IVPB ONE (06:00)
[2021-11-19] MEDS: ACAMPROSATE 333 MG PO SCH ×3 (08:08→20:23)
[2021-11-19] MEDS: Multivitamins/Minerals TAB PO SCH (08:10)
[2021-11-19] MEDS: Cholecalciferol (VIT D3) 1,000 unit TAB PO SCH (08:10)
[2021-11-19] MEDS: CMCS:Vortioxetine 10 mg TAB (NF) PO SCH (09:12)
[2021-11-19] MEDS: Enoxaparin 40 MG/0.4 ML SYR SUBCUT SCH (20:29)
[2021-11-20] MEDS ORDERED: Iron Sucrose 200 MG in NS 0.9% 100 ml BAG 100 ML IVPB ONE (06:00)
[2021-11-20 08:37] LABS: Calcium 8.6 mg/dL (8.6-10.3); Magnesium 1.6 mg/dL (1.9-2.7); eGFR CKD-EPI 113.9 (>60)
[2021-11-20] MEDS: Cholecalciferol (VIT D3) 1,000 unit TAB PO SCH (08:58)
[2021-11-20] MEDS: CMCS:Vortioxetine 10 mg TAB (NF) PO SCH (09:00)
[2021-11-20] MEDS: Multivitamins/Minerals TAB PO SCH (09:01)
[2021-11-20] MEDS: ACAMPROSATE 333 MG PO SCH ×2 (09:02→14:07)
[2021-11-20 12:12] VITALS: BP 157/105
[2021-11-20] MEDS ORDERED: Benzocaine (DENTAL) 10% TOP.GEL TOPICAL PRN (13:08)
== END 2021-11-20 17:15 | disposition home or self-care (01) | DRG 563 ==
LOC: ED 07:55 → EDHOLD 07:55 → MEDTELE 19:36 → SUATTDRO 11-15 18:34
PROVIDERS: ADMIT Internal Medicine; ATTEND Internal Medicine

== ENCOUNTER 2021-11-29 10:10 | Inpatient (IN) ==
[~2021-11-29 10:10] MED LIST: Buffered Lidocaine 1% SYRIN 1 ml INTRADERM ONE; Lactated Ringers 1000 ml BAG 1,000 ML IV SCH; Naloxone 0.4 mg VIAL 0.4 mg/ml 1 ml VIAL IV PRN; Ondansetron 4 mg VIAL 2 MG/ML 2 ml VIAL IV PRN; oxyCODONE/Acetamin 5/325 mg TAB PO PRN
[2021-11-29] MEDS ORDERED: Prochlorperazine 5 mg/ml 2 ml VIAL (10 mg) IV PRN (10:19)
[2021-11-29] MEDS ORDERED: Naloxone 0.4 mg VIAL 0.4 mg/ml 1 ml VIAL IV PRN (10:19)
[2021-11-29] MEDS ORDERED: HYDROmorphone 1 MG/1 ML SYRINGE IV PRN (10:19)
[2021-11-29] MEDS ORDERED: Buffered Lidocaine 1% SYRIN 1 ml INTRADERM ONE (10:33)
[2021-11-29] MEDS ORDERED: ceFAZolin 2 GM PREMIX 2 GM/50 ML BAG ONE (10:33)
[2021-11-29] MEDS ORDERED: ceFAZolin 1 GM in Dextrose 1 GM/50 ML BAG ONE (10:33)
[2021-11-29] MEDS ORDERED: fentaNYL 250 mcg/5 ml 50 MCG/ML 5 ml VIAL (250 MCG) ONE (10:48)
[2021-11-29] MEDS ORDERED: Dexmedetomidine 200 mcg/2 ml 2 ml VIAL (200 mcg) ONE (10:48)
[2021-11-29] MEDS ORDERED: Midazolam 2 mg/2 ml VIAL 1 mg/ml 2 ml VIAL (2 mg) ONE (10:48)
[2021-11-29] MEDS ORDERED: ROPIVACAINE 5 MG/ML 30 ML BTL (0.5%) ONE (10:49)
[2021-11-29] MEDS ORDERED: Vancomycin 1,000 MG VIAL ONE ×2 (11:26→14:16)
[2021-11-29] MEDS ORDERED: Rocuronium 50 mg VIAL 10 mg/ml 5 ml VIAL (50 mg) ONE ×2 (11:50→13:49)
[2021-11-29] MEDS ORDERED: Propofol 10 MG/ML 20 ML BTL ONE (11:50)
[2021-11-29] MEDS ORDERED: Lidocaine 2% PF 5 ML VIAL ONE (11:50)
[2021-11-29] MEDS ORDERED: Phenylephrine IV 10 MG/ML 1 ml VIAL ONE (11:59)
[2021-11-29] MEDS ORDERED: Glycopyrrolate IV 0.2 MG/ML 1 ML VIAL ONE (14:12)
[2021-11-29] MEDS ORDERED: Dexamethasone IV 4 MG/ML VIAL 1 ml VIAL ONE (14:23)
[2021-11-29] MEDS ORDERED: Ondansetron 4 mg VIAL 2 MG/ML 2 ml VIAL ONE (14:23)
[2021-11-29] MEDS ORDERED: fentaNYL 100 mcg/2 ml 50 MCG/ML VIAL ONE ×2 (18:18→19:48)
[2021-11-29] MEDS: fentaNYL 100 mcg/2 ml 50 MCG/ML VIAL IV PRN ×3 (18:20→19:52)
[2021-11-29] MEDS ORDERED: Ondansetron 4 mg VIAL 2 MG/ML 2 ml VIAL IV PRN (18:39)
[2021-11-29] MEDS ORDERED: Magnesium Hydroxide LIQ 30 ML UDC PO PRN (18:39)
[2021-11-29] MEDS ORDERED: Ondansetron ODT 4 mg TAB 4 MG TAB PO PRN (18:39)
[2021-11-29] MEDS ORDERED: Lactulose 30 ml UDC PO PRN (18:39)
[2021-11-29] MEDS ORDERED: Thiamine 100 MG/ML 2 ml VIAL (200 mg) IM ONE (19:32)
[2021-11-29] MEDS ORDERED: HYDROmorphone 1 MG/1 ML SYRINGE ONE (20:09)
[2021-11-29] MEDS: Magnesium Hydroxide LIQ 30 ML UDC PO SCH (22:36)
[2021-11-29] MEDS: ceFAZolin 1 GM ADVAN 1 GM in NS 0.9% 50 ML 50 ML IVPB SCH (22:37)
[2021-11-29] MEDS: Multivitamins/Minerals TAB PO SCH (22:38)
[2021-11-30] MEDS: Vortioxetine 10 mg TAB (NF) PO SCH ×2 (00:21→20:57)
[2021-11-30] MEDS: CMC:Acamprosate DR 333 mg TAB (NF) PO SCH ×4 (00:22→20:55)
[2021-11-30] MEDS ORDERED: Benzocaine (DENTAL) 10% TOP.GEL TOPICAL PRN (03:45)
[2021-11-30] MEDS: ceFAZolin 1 GM ADVAN 1 GM in NS 0.9% 50 ML 50 ML IVPB SCH ×2 (05:38→13:10)
[2021-11-30] MEDS ORDERED: Vitamin THERAPEUTIC TAB PO SCH (09:00)
[2021-11-30] MEDS: Multivitamins/Minerals TAB PO SCH ×2 (09:15→09:16)
[2021-11-30] MEDS: Magnesium Hydroxide LIQ 30 ML UDC PO SCH ×2 (09:38→21:02)
[2021-11-30] MEDS: Morphine 2 MG/ML SYRINGE IV PRN ×3 (10:49→16:25)
[2021-11-30] MEDS: BENZOCAINE TOPICAL PRN (21:05)
[2021-12-01] MEDS: CMC:Acamprosate DR 333 mg TAB (NF) PO SCH ×3 (08:50→20:15)
[2021-12-01] MEDS: Multivitamins/Minerals TAB PO SCH ×2 (08:52→08:53)
[2021-12-01] MEDS: Magnesium Hydroxide LIQ 30 ML UDC PO SCH ×2 (08:58→20:15)
[2021-12-01] MEDS: Morphine 2 MG/ML SYRINGE IV PRN ×4 (11:26→20:03)
[2021-12-01] MEDS: Vortioxetine 10 mg TAB (NF) PO SCH (20:12)
[2021-12-02] MEDS: Morphine 2 MG/ML SYRINGE IV PRN (04:25)
[2021-12-02] MEDS: Multivitamins/Minerals TAB PO SCH ×2 (08:42)
[2021-12-02] MEDS: CMC:Acamprosate DR 333 mg TAB (NF) PO SCH ×3 (08:43→21:39)
[2021-12-02] MEDS: Magnesium Hydroxide LIQ 30 ML UDC PO SCH ×2 (08:47→21:11)
[2021-12-02 15:10] LABS: ABS Eosinophils 0.2 10^3/ul (0-0.6); ABS Lymphocytes 1.1 10^3/ul (1.0-4.8); ABS Neutrophils 6.2 10^3/ul (1.5-7.7); Eosinophil % 2.7 %; Hematocrit 32 % (42-52); Hemoglobin 9.9 g/dL (14.0-18.0); Mean Corpuscular HGB Conc 31 g/dL (31-36); Mean Corpuscular Hemoglobin 27 pg (27-31); Mean Corpuscular Volume 86 fL (80-94); Mean Platelet Volume 8.3 fL (7.4-10.4); Platelet Count 194 10^3/uL (150-450); Red Blood Count 3.69 10^6 /uL (4.18-5.48); Red Cell Distribution Width 22 % (10-15); White Blood Count 8.6 10^3/uL (3.5-10.8)
[2021-12-02] MEDS: Vortioxetine 10 mg TAB (NF) PO SCH (21:40)
[2021-12-03] MEDS: Magnesium Hydroxide LIQ 30 ML UDC PO SCH ×2 (08:27→21:34)
[2021-12-03] MEDS: Multivitamins/Minerals TAB PO SCH ×2 (10:12→10:14)
[2021-12-03] MEDS: CMC:Acamprosate DR 333 mg TAB (NF) PO SCH ×3 (10:14→21:32)
[2021-12-03] MEDS: Vortioxetine 10 mg TAB (NF) PO SCH (21:33)
[2021-12-04] MEDS: Multivitamins/Minerals TAB PO SCH ×2 (09:05→09:06)
[2021-12-04] MEDS: CMC:Acamprosate DR 333 mg TAB (NF) PO SCH ×3 (09:10→20:18)
[2021-12-04] MEDS: Magnesium Hydroxide LIQ 30 ML UDC PO SCH ×2 (09:11→20:21)
[2021-12-04] MEDS: Vortioxetine 10 mg TAB (NF) PO SCH (20:18)
[2021-12-05] MEDS: Multivitamins/Minerals TAB PO SCH ×2 (08:23)
[2021-12-05] MEDS: CMC:Acamprosate DR 333 mg TAB (NF) PO SCH ×3 (08:26→23:05)
[2021-12-05] MEDS: Magnesium Hydroxide LIQ 30 ML UDC PO SCH ×2 (08:27→23:06)
[2021-12-05 19:14] LABS: ABS Eosinophils 0.2 10^3/ul (0-0.6); ABS Lymphocytes 0.8 10^3/ul (1.0-4.8); ABS Monocytes 0.8 10^3/ul (0-0.8); ABS Neutrophils 2.7 10^3/ul (1.5-7.7); Eosinophil % 3.7 %; Hematocrit 31 % (42-52); Hemoglobin 9.7 g/dL (14.0-18.0); Lymphocyte % 18.4 %; Mean Corpuscular HGB Conc 31 g/dL (31-36); Mean Corpuscular Hemoglobin 27 pg (27-31); Mean Corpuscular Volume 86 fL (80-94); Mean Platelet Volume 7.9 fL (7.4-10.4); Platelet Count 177 10^3/uL (150-450); Red Blood Count 3.66 10^6 /uL (4.18-5.48); Red Cell Distribution Width 22 % (10-15); White Blood Count 4.6 10^3/uL (3.5-10.8)
[2021-12-05 19:57] LABS: Calcium 8.2 mg/dL (8.6-10.3); Magnesium 1.9 mg/dL (1.9-2.7); Potassium 4.2 mmol/L (3.5-5.0)
[2021-12-05 20:03] LABS: eGFR CKD-EPI 108.9 (>60)
[2021-12-05] MEDS: Vortioxetine 10 mg TAB (NF) PO SCH (23:06)
[2021-12-06] MEDS: Multivitamins/Minerals TAB PO SCH ×2 (08:16→13:16)
[2021-12-06] MEDS: CMC:Acamprosate DR 333 mg TAB (NF) PO SCH ×3 (08:16→21:40)
[2021-12-06] MEDS: Magnesium Hydroxide LIQ 30 ML UDC PO SCH ×2 (12:36→22:22)
[2021-12-06] MEDS: Vortioxetine 10 mg TAB (NF) PO SCH (21:40)
[2021-12-07 06:07] LABS: ABS Eosinophils 0.2 10^3/ul (0-0.6); ABS Lymphocytes 1.3 10^3/ul (1.0-4.8); ABS Monocytes 0.8 10^3/ul (0-0.8); ABS Neutrophils 2.2 10^3/ul (1.5-7.7); Eosinophil % 4.2 %; Hematocrit 32 % (42-52); Lymphocyte % 28.8 %; Mean Corpuscular HGB Conc 31 g/dL (31-36); Mean Corpuscular Hemoglobin 27 pg (27-31); Mean Corpuscular Volume 85 fL (80-94); Mean Platelet Volume 7.6 fL (7.4-10.4); Nucleated Red Blood Cells % 0.2; Platelet Count 184 10^3/uL (150-450); Red Blood Count 3.73 10^6 /uL (4.18-5.48); Red Cell Distribution Width 22 % (10-15); White Blood Count 4.5 10^3/uL (3.5-10.8)
[2021-12-07 07:01] LABS: Calcium 8.2 mg/dL (8.6-10.3); Magnesium 1.8 mg/dL (1.9-2.7); Potassium 4.4 mmol/L (3.5-5.0); eGFR CKD-EPI 110.2 (>60)
[2021-12-07] MEDS ORDERED: Magnesium Sulfate 2 gm BAG 2 GM/50 ML BAG IVPB ONE (07:03)
[2021-12-07] MEDS: Multivitamins/Minerals TAB PO SCH ×2 (09:55→09:56)
[2021-12-07] MEDS: CMC:Acamprosate DR 333 mg TAB (NF) PO SCH ×3 (09:57→20:37)
[2021-12-07] MEDS: Magnesium Hydroxide LIQ 30 ML UDC PO SCH ×2 (10:07→20:53)
[2021-12-07] MEDS: Enoxaparin 40 MG/0.4 ML SYR SUBCUT SCH (15:03)
[2021-12-07] MEDS: Ketorolac 10 mg TAB (NF) PO PRN (15:04)
[2021-12-07] MEDS: Vortioxetine 10 mg TAB (NF) PO SCH (20:37)
[2021-12-07] MEDS: BENZOCAINE TOPICAL PRN (20:50)
[2021-12-08 05:42] LABS: ABS Eosinophils 0.2 10^3/ul (0-0.6); ABS Lymphocytes 1.2 10^3/ul (1.0-4.8); ABS Monocytes 0.7 10^3/ul (0-0.8); Eosinophil % 3.8 %; Hematocrit 35 % (42-52); Hemoglobin 10.6 g/dL (14.0-18.0); Lymphocyte % 23.6 %; Mean Corpuscular HGB Conc 31 g/dL (31-36); Mean Corpuscular Hemoglobin 27 pg (27-31); Mean Corpuscular Volume 88 fL (80-94); Mean Platelet Volume 8.7 fL (7.4-10.4); Platelet Count 135 10^3/uL (150-450); Red Blood Count 3.92 10^6 /uL (4.18-5.48); Red Cell Distribution Width 22 % (10-15); White Blood Count 5.1 10^3/uL (3.5-10.8)
[2021-12-08 05:57] LABS: CO2 Carbon Dioxide 22 mmol/L (22-32); Calcium 7.8 mg/dL (8.6-10.3); Chloride 107 mmol/L (101-111); Sodium 137 mmol/L (135-145)
[2021-12-08 06:02] LABS: Anion Gap 8 mmol/L (2-11); Blood Urea Nitrogen 10 mg/dL (6-24); Glucose 93 mg/dL (70-100); eGFR CKD-EPI 112.5 (>60)
[2021-12-08 09:03] LABS: Magnesium 1.8 mg/dL (1.9-2.7); Potassium Redraw 4.5 mmol/L (3.5-5.0)
[2021-12-08] MEDS: Multivitamins/Minerals TAB PO SCH ×2 (10:03→10:04)
[2021-12-08] MEDS: CMC:Acamprosate DR 333 mg TAB (NF) PO SCH ×3 (10:05→21:26)
[2021-12-08] MEDS: Magnesium Hydroxide LIQ 30 ML UDC PO SCH ×2 (10:41→21:29)
[2021-12-08] MEDS: Enoxaparin 40 MG/0.4 ML SYR SUBCUT SCH (13:12)
[2021-12-08] MEDS: Ketorolac 10 mg TAB (NF) PO PRN (17:16)
[2021-12-08] MEDS: Vortioxetine 10 mg TAB (NF) PO SCH (21:25)
[2021-12-09] MEDS: CMC:Acamprosate DR 333 mg TAB (NF) PO SCH ×2 (09:34→13:55)
[2021-12-09] MEDS: Multivitamins/Minerals TAB PO SCH ×2 (09:34→09:41)
[2021-12-09] MEDS: Magnesium Hydroxide LIQ 30 ML UDC PO SCH (09:35)
[2021-12-09 12:35] VITALS: BP 129/94
[2021-12-09] MEDS: Enoxaparin 40 MG/0.4 ML SYR SUBCUT SCH (13:56)
== END 2021-12-09 15:50 | disposition home health service (06) | DRG 982 ==
LOC: ICU 10:10 → OR 10:10 → SUATTDRO 18:08 → ICU 18:30 → SSU 11-30 15:23 → SUATTDRO 12-06 16:00
PROVIDERS: ADMIT Orthopaedic Surgery; ATTEND Internal Medicine